=== PATIENT | male | born 1960 | race Caucasian/White ===

== ENCOUNTER 2019-05-02 06:46 | Emergency (ER) | payer OTHER, BC ==
[~2019-05-02] VITALS: Ht 170.2 cm; Wt 84.7 kg
--- NOTE | 2019-05-02 07:10 | NUR ---
PT WITH C/O RASH ON TORSO AND BACK STARTING THIS AM. PT WITH FEVER THIS AM 100.4. PT HAS BEEN ON ABX FOR 1 WEEK FOR A BRONCHIAL INFECTION. PT DENIES PAIN, N/V/D, CP. PT ON NIBP, CONT PULSE OX. ER PROVIDER IN TO SERGEY PT. AT BEDSIDE
[2019-05-02] MEDS ORDERED: DIPHENHYDRAMINE 25 MG CAPSULE PO ONE (07:30)
[2019-05-02] MEDS ORDERED: ACETAMINOPHEN 500 MG TABLET PO ONE (07:30)
[2019-05-02] MEDS ORDERED: ACETAMINOPHEN 500 MG TABLET ONE (07:57)
[2019-05-02] MEDS ORDERED: DIPHENHYDRAMINE 25 MG CAPSULE ONE (07:57)
--- NOTE | 2019-05-02 08:24 | NUR ---
ER PROVIDER UPDATED ON XR RESULTS, REPEAT VITALS TAKEN. NAD, AT BEDSIDE
[2019-05-02] MEDS ORDERED: SODIUM CHLORIDE FLUSH 10ML SYR IVF ONE (09:00)
--- NOTE | 2019-05-02 09:10 | NUR ---
PT AMBULATED TO BR WITH STEADY GAIT. ER PROVIDER ORDERED CTA, PIV STARTED.
--- NOTE | 2019-05-02 09:14 | NUR ---
PT PLACED ON 2L O2, PT SATING 87% ON RA
[2019-05-02 09:16] LABS: MEAN CORPUSCULAR HEMOGLOBIN 29.8 pg (27.5-34.5); MEAN CORPUSCULAR HGB CONC 33.4 g/dL (33.2-36.2); MEAN CORPUSCULAR VOLUME 89.3 fL (81-97); PLATELET COUNT 157 x10^3/uL (130-400); RED BLOOD COUNT 4.05 x10^6/uL (4.38-5.82); RED CELL DISTRIBUTION WIDTH 13.4 % (9.4-14.8)
[2019-05-02 09:27] LABS: ALBUMIN 2.6 g/dL (3.4-5.0); ANION GAP 10 mmol/L (5-15); CALCIUM 8.1 mg/dL (8.5-10.1); CHLORIDE 100 mmol/L (98-107); CREATININE 1.27 mg/dL (0.7-1.3)
[2019-05-02 09:33] LABS: MD YES
[2019-05-02 09:35] LABS: BAND#(MANUAL) 0.72 x10^3/uL; BANDS%(MANUAL) 7 % (0-7); EOS% (MANUAL) 1 % (1-7); LYMPH#(MANUAL) 0.82 x10^3/uL (1-3.4); LYMPHS% (MANUAL) 8 % (22-44); MONOS#(MANUAL) 0.31 x10^3/uL (0.3-2.7); MONOS% (MANUAL) 3 % (2-9); SEG#(MANUAL) 8.34 x10^3/uL (1.8-6.8); SEGS% (MANUAL) 81 % (42-75)
[2019-05-02 09:36] LABS: <PLATELET ESTIMATE> ADEQUATE; <PLT MORPHOLOGY> NORMAL PLT MORPH; <RBC MORPHOLOGY> NORMAL; PMNS WITH VACUOLES 1+
--- NOTE | 2019-05-02 10:00 | NUR ---
PT TO CT
[2019-05-02] MEDS ORDERED: OMNIPAQUE 350 MG/ML, 100ML BOTTLE ONE (10:22)
--- NOTE | 2019-05-02 11:37 | NUR ---
PT AMBULATED IN [place], RA 95%. PT DENIES DIZZINESS.
[2019-05-02 11:38] VITALS: BP 115/76
--- NOTE | 2019-05-02 11:58 | NUR ---
Patient/Caregiver given discharge instructions and they have confirmed that they understand the instructions. Patient ambulatory with steady gait.
[2019-05-05] MEDS ORDERED: GABA300C10 PO (21:27)
[2019-05-05] MEDS ORDERED: HYDR50TA13 PO (21:27)
[2019-05-05] MEDS ORDERED: METF500T12 PO (21:27)
[2019-05-05] MEDS ORDERED: LISI-170 PO (21:27)
[2019-05-05] MEDS ORDERED: OMEP-110 PO (21:27)
[2019-05-05] MEDS ORDERED: [UNRECOGNIZED DRUG - CODE] PO (21:59)
[2019-05-05] MEDS ORDERED: CYAN-27 PO (21:59)
[2019-05-05] MEDS ORDERED: ERGO500017 PO (21:59)
[2019-05-05] MEDS ORDERED: ROSU20TA2 PO (21:59)
[2019-05-06] MEDS ORDERED: AMOX1TAB12 PO (16:30)
[2019-05-06] MEDS ORDERED: SULF-16 PO (16:33)
[2019-05-07] MEDS ORDERED: INSU100I11 SQ-INSULIN (15:45)
== END 2019-05-02 11:59 | disposition home or self-care (01) ==
LOC: EDBD 06:46 → ED 08:20
DX: L27.0 Generalized skin eruption due to drugs and medicaments taken internally (principal); R05 Cough; I10 Essential (primary) hypertension; F41.1 Generalized anxiety disorder; E11.9 Type 2 diabetes mellitus without complications; Y92.9 Unspecified place or not applicable
CPT/HCPCS: 36415; 71045; 71275; 80048; 82040; 85025; 93005; 99284; Q0163; Q9967